=== PATIENT | female | born 1965 | race Caucasian/White ===

== ENCOUNTER 2017-03-14 17:30 | Emergency (ER) | payer OTHER ==
[~2017-03-14] VITALS: Ht 157.5 cm; Wt 59.0 kg
--- OUTSIDE RECORDS SUMMARY | 2017-03-14 17:36 | External Medical Summary Rpt ---
Author Author [place] [facility] Organization [facility] Address Unknown Phone Unavailable Care Team Providers Care Director Packaging Name Role Phone Nicole HARMON PCP [phone] Encounter [place] PERSON [id number] Date(s): 02/24/17 - 02/24/17 [facility] [address] [place] [address]- Discharge Diagnosis: Horizontal nystagmus Discharge Diagnosis: Elevated liver enzymes Discharge Diagnosis: Acute hypokalemia Discharge Diagnosis: Sludge in gallbladder Discharge Diagnosis: Hypomagnesemia Discharge Disposition: OP Self Care or Home Attending Physician: LONG PROCTOR MD-EMR Admitting Physician: LONG PROCTOR MD-SONYA Referring Physician: ALISTAIR, SELF REFERRED Reason for Visit NYSTAGMUS SENT FROM EYE DOC Vital Signs Most recent 1 2 3 to oldest [Reference Range]: Temperature Tympanic (02/24/17 Source 11:53 AM) Temperature Fahrenheit Mode (02/24/17 11:53 AM) Temperature, 98.3 Deg F Fahrenheit (02/24/17 11:53 [96.8-99.7 AM) Deg F] Clinical 36.8 Deg C Temperature, (02/24/17 11:53 C AM) Peripheral 127 bpm Pulse Rate *HI*(02/24/17 [60-100 bpm] 11:53 AM) Heart Rate 80 bpm 86 bpm 126 bpm Monitored (02/24/17 6:30 PM) (02/24/17 6:00 PM) *HI* [60-100 bpm] (02/24/17 5:30 PM) Respiratory 10 Breaths/Min 12 Breaths/Min 16 Breaths/Min Rate [14-20 *LOW* *LOW* (02/24/17 5:30 PM) Breaths/Min] (02/24/17 6:30 PM) (02/24/17 6:00 PM) Blood Arm, right upper Pressure (02/24/17 11:53 Location AM) Blood Non-Invasive BP Pressure Device (02/24/17 Source 11:53 AM) Blood 140/93 mmHg 157/108 mmHg 176/70 mmHg Pressure (02/24/17 6:30 PM) *HI* *HI* [90-140/60-9 (02/24/17 6:00 PM) (02/24/17 5:30 PM) 0 mmHg] Mean 109 mmHg 124 mmHg 105 mmHg Arterial (02/24/17 6:30 PM) (02/24/17 6:00 PM) (02/24/17 5:30 PM) Pressure (MAP) Mean 113 123 100 Arterial (02/24/17 6:30 PM) (02/24/17 6:00 PM) (02/24/17 5:30 PM) Pressure (MAP)-BMDI Oxygen 95 % 95 % 99 % Saturation (02/24/17 6:30 PM) (02/24/17 6:00 PM) (02/24/17 5:30 PM) [94-100 %] Oxygen Room air Room air Room air Therapy Mode (02/24/17 6:30 PM) (02/24/17 6:00 PM) (02/24/17 5:30 PM) Height Stated (02/24/17 Source 11:53 AM) Height Entry [place] (02/24/17 Format 11:53 AM) Height/Lengt 5 ft (02/24/17 h, MALAYSIAN 11:53 AM) (ft) Height/Lengt 2 Inch (02/24/17 h MALAYSI[place] 11:53 AM) CLINICALHEIG 157.48 cm HT (02/24/17 11:53 AM) Weight Standing scale Source, ED (02/24/17 11:53 AM) Weight Entry [place] (02/24/17 Format 11:53 AM) Weight 145 lb (02/24/17 [place] lb 11:53 AM) CLINICALWEIG 65.91 kg (02/24/17 HT 11:53 AM) Body Surface 1.67 m2 (02/24/17 Area (BSA) 11:53 AM) Body Mass 26.6 kg/m2 Index (BMI) *HI*(02/24/17 [19-24 11:53 AM) kg/m2] [place] Body 49.73 kg (02/24/17 Weight 11:53 AM) Problem List Condition Effective Status Health Informant Dates Status HTN Active (hypertensio n)(Confirmed ) Allergies, Adverse Reactions, Alerts No Known Medication Allergies Medications dilTIAZem (Diltia XT 180 mg/24 hours oral capsule, extended release)Oral Every Day. ondansetron (Zofran ODT 4 mg oral tablet, disintegrating)1 Tablet(s) SubLINgual Every 4 Hours as needed Nausea/Vomiting for 3 Day(s). Refills: 0.Ordering provider: MARIELENA GRANADOS PA-UNK potassium chloride (potassium chloride 20 mEq oral tablet, extended release)1 Tablet(s) Oral Two Times A Day for 3 Day(s). do not crush or chew with a full glass of water with food. Refills: 0.Ordering provider: MARIELENA GRANADOS PA-UNK Results GENERAL CHEMISTRY Most recent 1 to oldest [Reference Range]: Sodium Level 136 mmol/L [136-145 (02/24/17 12:40 PM) mmol/L] Potassium 2.6 mmol/L 1 Level *CRIT* [3.5-5.1 (02/24/17 12:40 PM) mmol/L] Chloride 96 mmol/L Level *LOW* [98-107 (02/24/17 12:40 PM) mmol/L] Carbon 30 mmol/L Dioxide (02/24/17 12:40 PM) Level [21-32 mmol/L] Anion Gap 13 [9-20] (02/24/17 12:40 PM) Glucose 95 mg/dL Level (02/24/17 12:40 PM) [74-106 mg/dL] Blood Urea 3 mg/dL Nitrogen *LOW* [7-18 mg/dL] (02/24/17 12:40 PM) Creatinine 0.80 mg/dL Level (02/24/17 12:40 PM) [0.55-1.02 mg/dL] eGFR 92 mL/min/1.73m2 [>=60 (02/24/17 12:40 PM) mL/min/1.73m 2] eGFR 76 mL/min/1.73m2 NonAfrican (02/24/17 12:40 PM) [>=60 mL/min/1.73m 2] Bun/Creatini 3.8 ne *LOW* [8.0-20.0] (02/24/17 12:40 PM) Calcium 8.9 mg/dL Level (02/24/17 12:40 PM) [8.5-10.1 mg/dL] Protein 7.1 Gram/dL Total (02/24/17 12:40 PM) [6.4-8.5 Gram/dL] Albumin 2.6 Gram/dL Level *LOW* [3.4-5.0 (02/24/17 12:40 PM) Gram/dL] Globulin 4.5 Gram/dL [1.5-4.5 (02/24/17 12:40 PM) Gram/dL] A/G Ratio 0.6 [1.1-2.5] *LOW* (02/24/17 12:40 PM) Bilirubin 1.6 mg/dL Total *HI* [0.2-1.0 (02/24/17 12:40 PM) mg/dL] Bilirubin 0.9 mg/dL Direct *HI* [0.0-0.2 (02/24/17 12:40 PM) mg/dL] Alk Phos 189 Units/Liter [46-116 *HI* Units/Liter] (02/24/17 12:40 PM) AST [15-37 140 Units/Liter Units/Liter] *HI* (02/24/17 12:40 PM) ALT [14-59 113 Units/Liter Units/Liter] *HI* (02/24/17 12:40 PM) Magnesium 1.5 mg/dL Level *LOW* [1.8-2.4 (02/24/17 3:31 PM) mg/dL] CRP [0.0-0.9 <0.2 mg/dL mg/dL] (02/24/17 12:40 PM) 1Result Comment: CALLED TO:CHER GRANADOS DATE/TIME CALLED:_02/24/2017 13:14:50 EDT READ BACK AND VERIFIED:_YES CALLED BY: _EVIEEMATOLOGY Most recent 1 to oldest [Reference Range]: WBC [4.2-9.1 8.6 K/uL K/uL] (02/24/17 12:40 PM) RBC 4.56 Million/uL [3.93-5.22 (02/24/17 12:40 PM) Million/uL] Hgb 14.9 Gram/dL [11.2-15.7 (02/24/17 12:40 PM) Gram/dL] Hct 41.9 % [34.1-44.9 (02/24/17 12:40 PM) %] MCV 91.9 fL [79.0-94.8 (02/24/17 12:40 PM) fL] MCH 32.7 pg [25.6-32.2 *HI* pg] (02/24/17 12:40 PM) MCHC 35.6 Gram/dL [32.2-36.5 (02/24/17 12:40 PM) Gram/dL] Platelet 230 K/uL Count (02/24/17 12:40 PM) [163-369 K/uL] MPV 10.0 fL [9.4-12.4 (02/24/17 12:40 PM) fL] RDW 12.9 % [11.6-14.4 (02/24/17 12:40 PM) %] Neut % 68.9 % [34.0-71.0 (02/24/17 12:40 PM) %] Neut # 5.91 K/uL [1.56-6.13 (02/24/17 12:40 PM) K/uL] Lymph % 21.4 % [19.0-53.0 (02/24/17 12:40 PM) %] Lymph # 1.84 K/uL [1.18-3.74 (02/24/17 12:40 PM) K/uL] [place] % 8.6 % [4.7-12.5 %] (02/24/17 12:40 PM) [place] # 0.74 K/uL [0.24-0.82 (02/24/17 12:40 PM) K/uL] Eos % 0.5 % [1.0-7.0 %] *LOW* (02/24/17 12:40 PM) Eos # 0.04 K/uL [0.04-0.54 (02/24/17 12:40 PM) K/uL] Baso % 0.6 % [0.0-1.0 %] (02/24/17 12:40 PM) Baso # 0.05 K/uL [0.01-0.08 (02/24/17 12:40 PM) K/uL] Sed Rate 5 mm/Hr Auto [0-20 (02/24/17 12:40 PM) mm/Hr] Slide Review No (02/24/17 12:40 PM) Immunizations No data available for this section Procedures No data available for this section Social History Social History Response Type Smoking Status Former smoker1 1stopped smoking cigarettes 2009 and now uses e-cig Assessment and Plan No data available for this section Hospital Discharge Instructions Patient EducationDiplopia Hypokalemia Hypomagnesemia Potassium Content of Foods
--- OUTSIDE RECORDS SUMMARY | 2017-03-14 17:36 | External Medical Summary Rpt ---
Author Author [place] [facility] Organization [facility] Address Unknown Phone Unavailable Care Team Providers Care Airplane Pilot Photogrammetry Name Role Phone Nicole HARMON PCP [phone] Encounter [place] PERSON [id number] Date(s): 02/24/17 - 02/24/17 [facility] [address] [place] [address]- Discharge Diagnosis: Horizontal nystagmus Discharge Diagnosis: Elevated [...] Stated (02/24/17 Source 11:53 AM) Height Entry [place] (02/24/17 Format 11:53 AM) Height/Lengt 5 ft (02/24/17 h, GHANAIAN 11:53 AM) (ft) Height/Lengt 2 Inch (02/24/17 h GHANAIAN 11:53 AM) CLINICALHEIG 157.48 cm HT (02/24/17 11:53 AM) Weight Standing scale Source, ED (02/24/17 11:53 AM) Weight Entry [place] (02/24/17 Format 11:53 AM) Weight 145 lb (02/24/17 Martiniqu[place] lb 11:53 AM) CLINICALWEIG 65.91 kg (02/24/17 HT 11:53 AM) Body Surface 1.67 m2 (02/24/17 Area (BSA) 11:53 AM) Body Mass 26.6 kg/m2 Index (BMI) *HI*(02/24/17 [19-24 11:53 AM) kg/m2] [place] Body 49.73 kg (02/24/17 Weight 11:53 AM) [...] water with food. Refills: 0.Ordering provider: MARIELENA RGANADOS PA-UNK Results GENERAL CHEMISTRY Most recent 1 [...] 1.84 K/uL [1.18-3.74 (02/24/17 12:40 PM) K/uL] [place] % 8.6 % [4.7-12.5 %] (02/24/17 12:40 PM) [place] # 0.74 K/uL [0.24-0.82 (02/24/17 12:40 PM) [...]
--- OUTSIDE RECORDS SUMMARY | 2017-03-14 17:42 | External Medical Summary Rpt | CCD ---
Demographics Preferred Language Ethiopian Marital Status Unknown Samaritan Affiliation Unknown Race Unknown Ethnic Group Unknown Author Author , ELVIS LEAL Address Unknown Phone Immunization No patient found.
--- OUTSIDE RECORDS SUMMARY | 2017-03-14 17:42 | External Medical Summary Rpt | CCD ---
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
--- OUTSIDE RECORDS SUMMARY | 2017-03-14 17:42 | External Medical Summary Rpt | CCD ---
Demographics Preferred Language Guamanian Marital Status Unknown Evangelical Affiliation Unknown Race Unknown Ethnic Group Unknown Author Author , ELVIS LEAL Address Unknown Phone Immunization No patient found.
--- OUTSIDE RECORDS SUMMARY | 2017-03-14 17:42 | External Medical Summary Rpt ---
Author Author ELVIS Crum, ELVIS Crum Organization [employer] Address Unknown Phone Unavailable Payers Section Payer Plan Name Group ID Member ID Coverage Coverage Start End Date Date [facility] "" [id number] Nov 05 No [phone] informati on in source data
--- OUTSIDE RECORDS SUMMARY | 2017-03-14 17:42 | External Medical Summary Rpt ---
Author Author ELVIS Crum, ELVIS Crum Organization [employer] Address Unknown Phone Unavailable Payers Section Payer Plan Name Group ID Member ID Coverage Coverage Start End Date Date [facility] "" [id number] Nov 05 No [phone] informati on in source data
--- OUTSIDE RECORDS SUMMARY | 2017-03-14 17:42 | External Medical Summary Rpt | CCD ---
Author Author [employer] Organization [employer] Address Unknown Phone Unavailable Purpose Continuity of Care Document - through 2016
--- OUTSIDE RECORDS SUMMARY | 2017-03-14 17:42 | External Medical Summary Rpt | CCD ---
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
[2017-03-14] MEDS ORDERED: IBUPROFEN800 MG PO (18:36)
--- NOTE | 2017-03-14 18:44 | Urgent Treatment Center Report ---
History of Present Issue Date/Time Seen by Provider 03/14/172 Visit Reason Pt arrived:Wheelchair Presenting Problem:PT STATES SHE SLIPPED TRYING TO GET UP ONTO CURB AND HER RIGHT FOOT BENT FORWARD PUTTING ALL WEIGHT ON HER TOES. UNABLE TO BEAR WEIGHT. Location if Accident:Street/Road Onset of symptoms date/time:03/14/17 or onset unknown for: Have you (or family members/close friends) recently traveled outside the [place]? N If Yes, where/when: Have you had exposure to infectious disease within the past month? TB? Other? Specify: Patient state that as she was stepping up on curb on sidewalk she slipped and fell and bent her foot forward and all she fell and all her weight landed on her toes State that now she is having pain when she tries to bear weight on the foot ALLERGIES Coded Allergies: No Known Allergies (03/14/17) History Medical History General CAD? No Angina: No GA: No Hypertension? Yes Hyperlipidemia? No CHF? No DVT? No PE? No COPD? No Asthma? No Anemia? No GERD? No Gastric ulcers? No GI Bleed? No Hernia? No Thyroid Problems? No Hypothyroidism? No CVA? No Seizures? No Diabetes? No Renal Insuffiency? No UTI? No Stones? No BPH? No GB Disease: No Nephritic Syndrome? No Asplenia? No Hepatitis? No Sickle Cell Disease? No Arthritis? No Migraines? No Cataracts? No Glaucoma? No MRSA? No HIV? No TB? No Anxiety? No Depression? Yes Cancer? No More? No Immunization HX DT/Tetanus Unknown Surgical Hx Previous Surgery?Y LEFT KNEE X 3 Social History Smoking Hx Smoker: Former Smoker Tobacco: No Alcohol Alcohol: No Review of Systems All Other Systems Reviewed and Negative Comment Pain in right foot/ankle Physical Exam Vital Signs Vital Signs Date Time Temp Pulse Resp B/P Pulse O2 O2 Flow FiO2 Ox Delivery Rate 03/14 1801 98.1 108 18 103/74 98 General Appearance normal appearance, WD/WN, no apparent distress Neck normal inspection, non-tender, supple, full range of motion Respiratory Status Yes: trachea midline, chest symmetrical, non tender chest. No: respiratory distress. Cardiovascular normal exam, regular rate/rhythm Neurologic alert, normal exam, oriented x 3 Medical Decision Making LABS/Meds/Orders Pt receiving controlled substance in ED? No Results/Orders Orders Procedure Date/time Status FOOT-RT-3 VIEWS 03/14 1801 Active XRAY/CT/US XRAY/CT/US XRAY foot XR interpretation by reviewed by me Xray Results no fracture seen Comment discussed with Dr Chicas Progress [facility] Progress Notes Comment Patient state that she took pain medication prior to arrival Departure Departure Time of Disposition 1834 Disposition DC Home or Self Care(routine) Clinical Impression Primary Impression: Foot sprain Qualifiers: Encounter type: initial encounter Laterality: right Qualified Code: S93.601A - Unspecified sprain of right foot, initial encounter Condition STABLE Referrals Sebastian FRIEDMAN,Massimo PROCTOR DPM, ELIZABETH RIVERO MD, ERON SAAVEDRA Patient Instructions How To Perform RICE (Rest, Ice, Compress, Elevate) Additional Instructions *RICE, Rest the extremity, Ice 15-20 minutes 3-4 times daily, Compress- wear the uriah wrap as discussed as much as possible to help reduce swelling and pain, Elevate the extremity when at rest *Uriah wrap is for support and help control swelling, use it except in the shower. Be sure that is not to tight but not to loose either *Elevate when resting *Ibuprofen 600-800mg every 6-8 hours as needed for pain an inflammation. If need something more can take Tylenol in between doses of Ibuprofen to help Immediately follow up for new or worsening of symptoms, or no noticeable improvement over the next 3-5 days Discharge Counseling Counseled pt/family regarding diagnosis, test results, medications/RX, home care, follow up needs Prescriptions Current Visit Scripts Ibuprofen (Ibuprofen 800MG) 800 MG PO QIDP PRN pain #30 TAB at 1841
[2017-03-14 18:47] VITALS: BP 103/74
--- NOTE | 2017-03-14 23:29 | RADIOLOGY REPORT PS360 ---
FOOT-RT-3 VIEWS HISTORY: SLIPPED OFF CURB medial right foot pain step wrong off curb Patient Age: 51 years: Female Ordering Physician: STACEY FELIX APRN TECHNIQUE: 3 views right foot COMPARISON : No previous FINDINGS. I believe there is a nondisplaced thin longitudinal fracture arising from the lateral base of the first metatarsal. The this is best seen on the AP projection but can also be appreciated on the oblique view ( with this longitudinal fracture projected over the proximal second metatarsal.) .. Orthopedic follow-up be important.. I see no significant appearing widening between first and second metatarsl base, but fractures in this region require particular attention to exclude reflect Lisfranc injury complex. The remaining metatarsals intact. Toes intact.. Report called to ADAM sheppard IMPRESSION Thin longitudinal fracture fragment arises from the lateral base of the first metatarsal. Requires orthopedic follow-up
== END 2017-03-14 18:47 | disposition home or self-care (01) ==
LOC: UTC 17:30
DX: S93.601A Unspecified sprain of right foot, initial encounter (principal); Z87.891 Personal history of nicotine dependence; I10 Essential (primary) hypertension; W01.0XXA Fall on same level from slipping, tripping and stumbling without subsequent striking against object, initial encounter; Y92.480 Sidewalk as the place of occurrence of the external cause